=== PATIENT | female | born 1970 | race Caucasian/White ===

== ENCOUNTER → 2016-10-17 | Outpatient (CLI) | payer BC ==
--- NOTE | 2016-10-19 07:40 | MM ---
Reason for exam: screening (asymptomatic). Last mammogram was performed 1 year and 9 months ago. History: Patient has history of other cancer at age 41. Physical Findings: A clinical breast exam by your physician is recommended on an annual basis and results should be correlated with mammographic findings. MG 3D Screening Mammo W/Cad Bilateral CC and MLO view(s) were taken. Prior study comparison: January 22, 2015, bilateral MG screening mammo w CAD. August 14, 2013, [facility] DIGITAL RIGHT MAMMOGRAM w/CAD. The breast tissue is heterogeneously dense. This may lower the sensitivity of mammography. No significant changes when compared with prior studies. ASSESSMENT: Benign, BI-RAD 2 RECOMMENDATION: Routine screening mammogram of both breasts in 1 year.
== END | disposition home or self-care (01) ==
LOC: RADMAMWWP 16:50
PROVIDERS: ATTEND Obstetrics & Gynecology
DX: Z12.31 Encounter for screening mammogram for malignant neoplasm of breast (principal)
CPT/HCPCS: 77063; G0202

== ENCOUNTER 2017-02-26 11:10 | Observation (INO) | payer BC ==
[2017-02-26] MEDS ORDERED: SODIUM CHLORIDE 0.9% 1,000 ML IV STA (12:35)
[2017-02-26] MEDS ORDERED: SODIUM CHLORIDE 0.9% 500 ML IV STA (12:35)
--- NOTE | 2017-02-26 13:06 | XR ---
EXAMINATION TYPE: XR chest 2V DATE OF EXAM: 02/26/2017 COMPARISON: NONE HISTORY: Chest pain with intermittent tachycardia for 2 weeks. TECHNIQUE: Frontal and lateral views of the chest are obtained. FINDINGS: Linear scarring or atelectasis in left lingula is present. Right lung is clear. No large pl eural effusion or pneumothorax is seen bilaterally. The cardiac silhouette size is upper limits of no rmal. The osseous structures are intact. Cholecystectomy clips are noted. IMPRESSION: Lingular linear scarring and/or atelectasis.
--- NOTE | 2017-02-26 13:36 | ED ---
General Adult HPI - General Chief complaint: Arrhythmia/Palpitations Stated complaint: HEART RACING Time Seen by Provider: 02/26/17 12:19 Source: patient, RN notes reviewed, old records reviewed Mode of arrival: ambulatory Limitations: no limitations - History of Present Illness Initial comments: This is a 46-year-old female to the ER for evaluation. Patient presents today for evaluation of arrhythmia palpitations heart beating fast in her chest, occasionally related with shortness of breath. Patient has history of similar symptoms as well as is the worse that has been. No change in medication no fevers, patient denies recent drugs or alcohol. No fevers. Patient does have history of also abdominal surgeries - Related Data Home Medications Medication Instructions Recorded Confirmed Atorvastatin [Lipitor] 20 mg PO HS 02/26/17 02/26/17 Cholecalciferol [Vitamin D3] 2,000 unit PO HS 02/26/17 02/26/17 Cyclobenzaprine [Flexeril] 20 mg PO HS 02/26/17 02/26/17 Metoprolol Succinate (ER) [Toprol 50 mg PO HS 02/26/17 02/26/17 Xl] Rizatriptan Benzoate [Maxalt] 10 mg PO DAILY PRN 02/26/17 02/26/17 Vitamin B Complex 1 cap PO QAM 02/26/17 02/26/17 Allergies Allergy/AdvReac Type Severity Reaction Status Date / Time hydrocodone [From Vicodin] AdvReac Vomiting Verified 02/26/17 13:10 Review of Systems ROS Statement: Those systems with pertinent positive or pertinent negative responses have been documented in the HPI. ROS Other: All systems not noted in ROS Statement are negative. Past Medical History Past Medical History: No Reported History History of Any Multi-Drug Resistant Organisms: None Reported Past Surgical History: Appendectomy, Section, Cholecystectomy, Tonsillectomy, Tubal Ligation Additional Past Surgical History / Comment(s): bowel resection, abrasion surgery , right elbow, right foot, right ovary removed Smoking Status: Never smoker Past Alcohol Use History: None Reported Past Drug Use History: None Reported General Exam Limitations: no limitations General appearance: alert, in no apparent distress, anxious Head exam: Present: atraumatic, normocephalic, normal inspection Eye exam: Present: normal appearance, PERRL, EOMI. Absent: scleral icterus, conjunctival injection, periorbital swelling ENT exam: Present: normal exam, mucous membranes moist Neck exam: Present: normal inspection. Absent: tenderness, meningismus, lymphadenopathy Respiratory exam: Present: normal lung sounds bilaterally. Absent: respiratory distress, wheezes, rales, rhonchi, stridor Cardiovascular Exam: Present: normal rhythm, tachycardia, normal heart sounds. Absent: systolic murmur, diastolic murmur, rubs, gallop, clicks GI/Abdominal exam: Present: soft, normal bowel sounds. Absent: distended, tenderness, guarding, rebound, rigid Extremities exam: Present: normal inspection, full ROM, normal capillary refill. Absent: tenderness, pedal edema, joint swelling, calf tenderness Back exam: Present: normal inspection Neurological exam: Present: alert, oriented X3, CN II-XII intact Psychiatric exam: Present: normal affect, normal mood Skin exam: Present: warm, dry, intact, normal color. 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 ] Respiratory 18 18 18 Rate Blood Pressure 128/76 125/76 120/68 O2 Sat by Pulse 98 98 98 Oximetry - Reevaluation(s) Reevaluation #1: 02/26/17 14:36 Patient's Dar saw remains elevated, 08/14/2003 to 1:15 EKG Findings - EKG Comments: EKG Findings:: EKG shows sinus tachycardia rate 105, VT 140, QRS 86, QTC 470 Medical Decision Making - Medical Decision Making 46-year-old year of palpitations and chest pain, patient will be admitted for cardiac observation, initial EKG and troponin are negative - Lab Data Result diagrams: 02/26/17 12:25 02/26/17 12:25 Lab Results 02/26/17 02/26/17 02/26/17 Range/Units 12:25 12:25 12:25 WBC 10.5 (3.8-10.6) k/uL RBC 4.94 (3.80-5.40) m/uL Hgb 14.1 (11.4-16.0) gm/dL Hct 42.3 (34.0-46.0) % MCV 85.8 (80.0-100.0) fL MCH 28.6 (25.0-35.0) pg MCHC 33.4 (31.0-37.0) g/dL RDW 14.2 (11.5-15.5) % Plt Count 269 (150-450) k/uL Neutrophils % 66 % Lymphocytes % 27 % Monocytes % 4 % Eosinophils % 2 % Basophils % 1 % Neutrophils # 6.9 (1.3-7.7) k/uL Lymphocytes # 2.9 (1.0-4.8) k/uL Monocytes # 0.4 (0-1.0) k/uL Eosinophils # 0.2 (0-0.7) k/uL Basophils # 0.1 (0-0.2) k/uL PT (9.0-12.0) sec INR (<1.2) APTT (22.0-30.0) sec Sodium 144 (137-145) mmol/L Potassium 3.6 (3.5-5.1) mmol/L Chloride 103 (98-107) mmol/L Carbon Dioxide 25 (22-30) mmol/L Anion Gap 16 mmol/L BUN 8 (7-17) mg/dL Creatinine 0.60 (0.52-1.04) mg/dL Est GFR (MDRD) Af Amer >60 (>60 ml/min/1.73 sqM) Est GFR (MDRD) Non-Af >60 (>60 ml/min/1.73 sqM) Glucose 78 (74-99) mg/dL Calcium 9.4 (8.4-10.2) mg/dL Magnesium 1.9 (1.6-2.3) mg/dL Total Bilirubin 0.5 (0.2-1.3) mg/dL AST 24 (14-36) U/L ALT 47 (9-52) U/L Alkaline Phosphatase 77 (38-126) U/L Total Creatine Kinase 56 (30-135) U/L CK-MB (CK-2) 0.4 (0.0-2.4) ng/mL CK-MB (CK-2) Rel Index 0.7 Troponin I <0.012 (0.000-0.034) ng/mL Total Protein 7.2 (6.3-8.2) g/dL Albumin 4.6 (3.5-5.0) g/dL Digoxin <0.4 ng/mL 02/26/17 Range/Units 12:25 WBC (3.8-10.6) k/uL RBC (3.80-5.40) m/uL Hgb (11.4-16.0) gm/dL Hct (34.0-46.0) % MCV (80.0-100.0) fL MCH (25.0-35.0) pg MCHC (31.0-37.0) g/dL RDW (11.5-15.5) % Plt Count (150-450) k/uL Neutrophils % % Lymphocytes % % Monocytes % % Eosinophils % % Basophils % % Neutrophils # (1.3-7.7) k/uL Lymphocytes # (1.0-4.8) k/uL Monocytes # (0-1.0) k/uL Eosinophils # (0-0.7) k/uL Basophils # (0-0.2) k/uL PT 10.1 (9.0-12.0) sec INR 1.0 (<1.2) APTT 24.4 (22.0-30.0) sec Sodium (137-145) mmol/L Potassium (3.5-5.1) mmol/L Chloride (98-107) mmol/L Carbon Dioxide (22-30) mmol/L Anion Gap mmol/L BUN (7-17) mg/dL Creatinine (0.52-1.04) mg/dL Est GFR (MDRD) Af Amer (>60 ml/min/1.73 sqM) Est GFR (MDRD) Non-Af (>60 ml/min/1.73 sqM) Glucose (74-99) mg/dL Calcium (8.4-10.2) mg/dL Magnesium (1.6-2.3) mg/dL Total Bilirubin (0.2-1.3) mg/dL AST (14-36) U/L ALT (9-52) U/L Alkaline Phosphatase (38-126) U/L Total Creatine Kinase (30-135) U/L CK-MB (CK-2) (0.0-2.4) ng/mL CK-MB (CK-2) Rel Index Troponin I (0.000-0.034) ng/mL Total Protein (6.3-8.2) g/dL Albumin (3.5-5.0) g/dL Digoxin ng/mL - Radiology Data Radiology results: report reviewed (Chest x-ray is negative for acute disease), image reviewed Critical Care Time Critical Care Time: Yes Total Critical Care Time: 31 Disposition Clinical Impression: Palpitations, Tachycardia, Chest pain Disposition: ADMITTED IP TO THIS [facility] Condition: Fair
[2017-02-26] MEDS ORDERED: NITROGLYCERIN SL TABS 0.4 MG TAB SUBLINGUAL PRN (14:33)
[2017-02-26] MEDS ORDERED: ASPIRIN 81 MG CHEW PO STA (14:33)
[2017-02-26 14:39] LABS: Basophils # (A) 0.1 k/uL (0-0.2); Basophils % (A) 1 %; Eosinophils # (A) 0.2 k/uL (0-0.7); Eosinophils % (A) 2 %; HCT 42.3 % (34.0-46.0); HDW 2.78; HGB 14.1 gm/dL (11.4-16.0); Luc # (Auto) 0.11; Luc % (Auto) 1; Lymphocytes # (A) 2.9 k/uL (1.0-4.8); Lymphocytes % (A) 27 %; MCH 28.6 pg (25.0-35.0); MCHC 33.4 g/dL (31.0-37.0); MCV 85.8 fL (80.0-100.0); Mean Platelet Volume 8.1; Monocytes # (A) 0.4 k/uL (0-1.0); Monocytes % (A) 4 %; Neutrophils # (A) 6.9 k/uL (1.3-7.7); Neutrophils % (A) 66 %; RBC 4.94 m/uL (3.80-5.40); RDW 14.2 % (11.5-15.5); WBC 10.5 k/uL (3.8-10.6); WBC (Perox) 9.55
[2017-02-26 14:52] LABS: ALT 47 U/L (9-52); AST 24 U/L (14-36); Alkaline Phosphatase 77 U/L (38-126); Anion Gap 16 mmol/L; Blood Urea Nitrogen 8 mg/dL (7-17); Calcium 9.4 mg/dL (8.4-10.2); Carbon Dioxide 25 mmol/L (22-30); Chloride 103 mmol/L (98-107); Digoxin <0.4 ng/mL; Glucose 78 mg/dL (74-99); Magnesium 1.9 mg/dL (1.6-2.3); Non-African American GFR(MDRD) >60 (>60 ml/min/1.73 sqM); Potassium 3.6 mmol/L (3.5-5.1); Sodium 144 mmol/L (137-145); Total Bilirubin 0.5 mg/dL (0.2-1.3); Total Protein 7.2 g/dL (6.3-8.2)
[2017-02-26 14:54] LABS: Partial Thromboplastin Time 24.4 sec (22.0-30.0); Prothrombin Time 10.1 sec (9.0-12.0)
[2017-02-26 15:00] LABS: Creatine Kinase 56 U/L (30-135)
[2017-02-26 15:13] LABS: Creatine Kinase MB 0.4 ng/mL (0.0-2.4); Troponin I <0.012 ng/mL (0.000-0.034)
[2017-02-26] MEDS: SODIUM CHLORIDE 0.9% 1,000 ML IV SCH (16:37)
[2017-02-26 16:49] VITALS: BMI 42.5
[2017-02-26 18:57] LABS: Creatine Kinase 45 U/L (30-135)
[2017-02-26 19:10] LABS: Creatine Kinase MB 0.3 ng/mL (0.0-2.4); Troponin I <0.012 ng/mL (0.000-0.034)
[2017-02-26] MEDS ORDERED: SUMAtriptan SUCCINATE 50 MG TAB PO PRN (22:23)
[2017-02-26] MEDS ORDERED: CYCLOBENZAPRINE 10 MG TAB PO SCH (22:30)
[2017-02-26] MEDS ORDERED: ATORVASTATIN 20 MG TAB PO SCH (22:30)
[2017-02-26] MEDS ORDERED: CHOLECALCIFEROL 1,000 UNIT TAB PO SCH (22:30)
[2017-02-26] MEDS: METOPROLOL TARTRATE 50 MG TAB PO SCH (22:55)
[2017-02-27 00:08] LABS: Creatine Kinase 42 U/L (30-135)
[2017-02-27 00:20] LABS: Creatine Kinase MB 0.3 ng/mL (0.0-2.4); Troponin I <0.012 ng/mL (0.000-0.034)
[2017-02-27] MEDS: SODIUM CHLORIDE 0.9% 1,000 ML IV SCH (00:33)
[2017-02-27 04:31] VITALS: RESP 18
[2017-02-27 06:46] LABS: Basophils % (A) 0 %; CH 28.8; CHCM 33.9; Eosinophils # (A) 0.2 k/uL (0-0.7); Eosinophils % (A) 3 %; HCT 37.8 % (34.0-46.0); HDW 2.84; HGB 12.5 gm/dL (11.4-16.0); Luc # (Auto) 0.15; Luc % (Auto) 2; Lymphocytes # (A) 1.9 k/uL (1.0-4.8); Lymphocytes % (A) 27 %; MCH 28.2 pg (25.0-35.0); MCV 85.2 fL (80.0-100.0); Mean Platelet Volume 7.5; Monocytes # (A) 0.3 k/uL (0-1.0); Monocytes % (A) 5 %; Neutrophils # (A) 4.4 k/uL (1.3-7.7); Neutrophils % (A) 63 %; RBC 4.43 m/uL (3.80-5.40); RDW 14.3 % (11.5-15.5); WBC (Perox) 7.19
[2017-02-27 06:59] LABS: Anion Gap 9 mmol/L; Blood Urea Nitrogen 8 mg/dL (7-17); Calcium 8.9 mg/dL (8.4-10.2); Carbon Dioxide 25 mmol/L (22-30); Chloride 108 mmol/L (98-107); Cholesterol 114 mg/dL (<200); Glucose 108 mg/dL (74-99); HDL Cholesterol 31 mg/dL (40-60); Magnesium 1.9 mg/dL (1.6-2.3); Non-African American GFR(MDRD) >60 (>60 ml/min/1.73 sqM); Potassium 4.3 mmol/L (3.5-5.1); Sodium 142 mmol/L (137-145)
[2017-02-27] MEDS ORDERED: ASPIRIN 325 MG TAB PO SCH (09:00)
[2017-02-27] MEDS ORDERED: B COMPLEX-VIT C-VIT E-ZINC 1 EACH TAB PO SCH (09:00)
[2017-02-27] MEDS: METOPROLOL TARTRATE 50 MG TAB PO SCH (10:50)
[2017-02-27 11:14] VITALS: BP 124/79; PULSE 100; TEMP 97.5
--- NOTE | 2017-02-27 16:33 | CONS ---
Caren Remy is a ( )-year-old lady with a history of palpitations and probably inappropriate sinus tachycardia. She came into the hospital complaining of a fluttering feeling in the chest and was found to be in sinus tachycardia. She usually takes Toprol XL 50 mg daily. That was switched to Lopressor 50 mg b.i.d. She is resting comfortably without symptoms. She sees Dr. Freda Kim in the outpatient setting, and I will be seeing her in the office in followup. She is doing well at the time of my evaluation; her palpations are better. EKG reveals sinus tachycardia which seems to be improving. She has no chest discomfort or any dizziness or lightheadedness. She has hyperlipidemia and probably inappropriate sinus tachycardia and history of some back pain of unclear etiology. PAST MEDICAL HISTORY: Unremarkable for hypertension, diabetes, myocardial infarction of CVA. Patient has history of inappropriate sinus tachycardia. She is status post cholecystectomy, tubal ligation. SOCIAL HISTORY: Patient is not a smoker. She does use caffeine and drinks Crystal Light, which I have asked her to stop. Medications at home include: 1. Lipitor 20 mg daily. 2. Metoprolol succinate 50 mg daily. 3. Maxalt for migraine headaches. 4. Vitamin supplements. On examination, her blood pressure is 124/70, pulse rate 80 per minute, regular. HEENT: Unremarkable. Fundus was not examined by me. Neck is supple. No JVD. I do not hear a carotid bruit. There is no thyromegaly. Heart exam reveals S1, S2 heard normally in all areas without a rub, murmur or gallop. Lungs are clear. Abdomen is soft, non-tender. Lower extremities reveal normal pulses. No edema. Central nervous system in normal. Laboratory data reveal her TSH is normal. No other significant abnormalities are detected. D-dimer is within normal limits. EKG revealed a sinus rhythm and heart rate of about 105 beats per minute; no acute changes. IMPRESSION: 1. Sinus tachycardia in a patient with a known inappropriate sinus tachycardia. 2. History of hyperlipidemia. RECOMMENDATIONS: I am recommending that we put her on a Hep-Lock, increase her activity, switch her from metoprolol succinate 50 mg daily to metoprolol tartrate 50 mg b.i.d. She can be discharged. I will see her in the office in 2 weeks or so. Advised regarding weight reduction, dietary ( ) and exercise. Thank you very much for the consult. ROSIBEL
--- NOTE | 2017-02-27 17:16 | P.HPIM ---
History of Present Illness 46-year-old female came in with complains of palpitations, found to have sinus tachycardia. Patient was also of mild chest pressure like sensation which resolved in a few minutes without any diaphoresis, nausea, lightheadedness. Patient was evaluated by cardiology. Patient had a recent echocardiogram and cardiology outpatient clinic which was essentially within normal limits. Patient has normal d-dimer, she does not have any symptoms of sepsis. Patient denied any fever chills, nausea vomiting urease essentially within normal limits chest x-ray did not show any significant abnormalities. She was evaluated cardiology and recommending Lopressor 50 twice a day patient is an 50 once a day long-acting metoprolol at home. Review of Systems REVIEW OF SYSTEMS: CONSTITUTIONAL: No fever, no malaise, no fatigue. HEENT: No recent visual problems or hearing problems. Denied any sore throat. CARDIOVASCULAR: Noorthopnea, PND, no syncope. PULMONARY: No shortness of breath, no cough, no hemoptysis. GASTROINTESTINAL: No diarrhea, no nausea, no vomiting, no abdominal pain. Normoactive bowel sounds. NEUROLOGICAL: No headaches, no weakness, no numbness. HEMATOLOGICAL: Denies any bleeding or petechiae. GENITOURINARY: Denies any burning micturition, frequency, or urgency. MUSCULOSKELETAL/RHEUMATOLOGICAL: Denies any joint pain, swelling, or any muscle pain. ENDOCRINE: Denies any polyuria or polydipsia. The rest of the 14-point review of systems is negative. Past Medical History Past Medical History: Hyperlipidemia Additional Past Medical History / Comment(s): Plapitations History of Any Multi-Drug Resistant Organisms: None Reported Past Surgical History: Appendectomy, Section, Cholecystectomy, Tonsillectomy, Tubal Ligation Additional Past Surgical History / Comment(s): bowel resection, abrasion surgery , right elbow, right foot, right ovary removed Smoking Status: Never smoker - Past Family History Mother Family Medical History: CVA/TIA Father Family Medical History: Hypertension Medications and Allergies Home Medications Medication Instructions Recorded Confirmed Type Atorvastatin [Lipitor] 20 mg PO HS 02/26/17 02/26/17 History Cholecalciferol [Vitamin D3] 2,000 unit PO HS 02/26/17 02/26/17 History Cyclobenzaprine [Flexeril] 20 mg PO HS 02/26/17 02/26/17 History Rizatriptan Benzoate [Maxalt] 10 mg PO DAILY PRN 02/26/17 02/26/17 History Vitamin B Complex 1 cap PO QAM 02/26/17 02/26/17 History Allergies Allergy/AdvReac Type Severity Reaction Status Date / Time hydrocodone [From Vicodin] AdvReac Vomiting Verified 02/26/17 13:10 Physical Exam Vitals: Vital Signs Temp Pulse Resp BP Pulse Ox 02/27/17 11:13 97.5 F L 100 18 124/79 93 L 02/27/17 08:57 97.4 F L 95 18 118/57 95 02/27/17 08:47 94 L 02/27/17 04:00 97.8 F 88 18 108/73 94 L 02/27/17 00:00 98.2 F 93 18 107/72 95 02/26/17 20:00 97.8 F 104 H 18 124/70 94 L Intake and Output 02/27/17 02/27/17 02/27/17 06:59 14:59 22:59 Intake Total 1200 600 Balance 1200 600 Intake: IV 1200 300 Sodium Chloride 0.9% 1, 1200 300 000 ml @ 100 mls/hr IV . Q10H IVETTE Rx#:[id number] Oral 300 Other: Voiding Method Toilet Toilet # Voids 2 Weight 89.9 kg PHYSICAL EXAMINATION: GENERAL: The patient is alert and oriented x3, not in any acute distress. Well developed, well nourished. HEENT: Pupils are round and equally reacting to light. EOMI. No scleral icterus. No conjunctival pallor. Normocephalic, atraumatic. No pharyngeal erythema. No thyromegaly. CARDIOVASCULAR: S1 and S2 present. No murmurs, rubs, or gallops. PULMONARY: Chest is clear to auscultation, no wheezing or crackles. ABDOMEN: Soft, nontender, nondistended, normoactive bowel sounds. No palpable organomegaly. MUSCULOSKELETAL: No joint swelling or deformity. EXTREMITIES: No cyanosis, clubbing, or pedal edema. NEUROLOGICAL: Gross neurological examination did not reveal any focal deficits. SKIN: No rashes. Results CBC & Chem 7: 02/27/17 06:18 02/27/17 06:18 Labs: Abnormal Lab Results - Last 24 Hours (Table) 02/27/17 Range/Units 06:18 Chloride 108 H (98-107) mmol/L Glucose 108 H (74-99) mg/dL Triglycerides 166 H (<150) mg/dL HDL Cholesterol 31 L (40-60) mg/dL Thrombosis Risk Factor Assmnt - Choose All That Apply Each Factor Represents 1 point: Age 41-60 years, Obesity (BMI >25) Thrombosis Risk Factor Assessment Total Risk Factor Score: 2 Thrombosis Risk Factor Assessment Level: Low Risk Assessment and Plan Plan: #1 sinus tachycardia: Work up negative, TSH of the essentially within normal limits. Patient is being discharged on metoprolol as mentioned above. Patient was referred to cardiology. 2 chest pressure: Secondary to tachycardia. 3 hyperlipidemia
--- NOTE | 2017-02-27 17:17 | P.DS ---
Providers Date of admission: 02/26/17 14:33 Attending physician: Berenice Queen Consults: 02/26/17 14:33 Consult Physician Urgent Consulting Provider: La Kim Consult Reason/Comments: cp Do you want consulting provider notified?: Yes Primary care physician: Stated None Hospital Course: Please refer to HPI Patient Condition at Discharge: Fair Plan - Discharge Summary New Discharge Prescriptions: New Metoprolol Tartrate [Lopressor] 50 mg PO BID #60 tab Discontinued Metoprolol Succinate (ER) [Toprol Xl] 50 mg PO HS No Action Vitamin B Complex 1 cap PO QAM Rizatriptan Benzoate [Maxalt] 10 mg PO DAILY PRN PRN Reason: Migraine Headache Cholecalciferol [Vitamin D3] 2,000 unit PO HS Atorvastatin [Lipitor] 20 mg PO HS Cyclobenzaprine [Flexeril] 20 mg PO HS Discharge Medication List Atorvastatin [Lipitor] 20 mg PO HS 02/26/17 [History] Cholecalciferol [Vitamin D3] 2,000 unit PO HS 02/26/17 [History] Cyclobenzaprine [Flexeril] 20 mg PO HS 02/26/17 [History] Rizatriptan Benzoate [Maxalt] 10 mg PO DAILY PRN 02/26/17 [History] Vitamin B Complex 1 cap PO QAM 02/26/17 [History] Metoprolol Tartrate [Lopressor] 50 mg PO BID #60 tab 02/27/17 [Rx] Follow up Appointment(s)/Referral(s): La Kim MD [STAFF PHYSICIAN] - 03/15/17 10:30 am None,Stated [Primary Care Provider] - 3 Days () Patient Instructions/Handouts: Chest Pain (DC) Discharge Disposition: HOME SELF-CARE
[2017-02-28] MEDS ORDERED: ASPIRIN 81 MG CHEW PO SCH (09:00)
== END 2017-02-27 15:25 | disposition home or self-care (01) ==
LOC: EC 11:10 → 6SEL 14:33
PROVIDERS: ADMIT Hospitalist; ATTEND Hospitalist
DX: R00.0 Tachycardia, unspecified (principal); E66.9 Obesity, unspecified; E78.5 Hyperlipidemia, unspecified; G43.909 Migraine, unspecified, not intractable, without status migrainosus; M54.9 Dorsalgia, unspecified; Z82.49 Family history of ischemic heart disease and other diseases of the circulatory system; Z88.5 Allergy status to narcotic agent; Z79.899 Other long term (current) drug therapy; Z68.41 Body mass index [BMI] 40.0-44.9, adult
CPT/HCPCS: 96360 ×2; 99291 ×2; 93005 ×2; 36415; 94760; 85379; 80061; 80053; 80048; 84443; 82550; 82553; 80162; 83735 ×2; 84484; 85025 ×2; 85610; 85730; 71020; G0378 ×2

== ENCOUNTER → 2017-04-02 | Outpatient (CLI) | payer BC ==
[2017-04-02 16:26] LABS: Digoxin 0.5 ng/mL
== END | disposition home or self-care (01) ==
LOC: LABWHC1 15:50
PROVIDERS: ATTEND Internal Medicine Interventional Cardiology
DX: I49.9 Cardiac arrhythmia, unspecified (principal)
CPT/HCPCS: 36415; 80162; 84439; 84443

== ENCOUNTER → 2020-09-28 | Outpatient (CLI) | payer BC ==
--- NOTE | 2020-09-29 13:36 | MM ---
Reason for exam: screening (asymptomatic). Last mammogram was performed 3 years and 11 months ago. History: Patient is postmenopausal and has history of other cancer at age 41. Physical Findings: A clinical breast exam by your physician is recommended on an annual basis and results should be correlated with mammographic findings. MG 3D Screening Mammo W/Cad Bilateral CC and MLO view(s) were taken. Prior study comparison: October 17, 2016, bilateral MG 3d screening mammo w/cad. January 22, 2015, bilateral MG screening mammo w CAD. The breast tissue is heterogeneously dense. This may lower the sensitivity of mammography. No significant changes when compared with prior studies. ASSESSMENT: Benign, BI-RAD 2 RECOMMENDATION: Routine screening mammogram of both breasts in 1 year.
== END | disposition home or self-care (01) ==
LOC: RADMAMWWP 09:42
PROVIDERS: ATTEND Obstetrics & Gynecology
DX: Z12.31 Encounter for screening mammogram for malignant neoplasm of breast (principal)
CPT/HCPCS: 77063; 77067

== ENCOUNTER 2020-11-25 15:02 | Emergency (ER) | payer BC, OTHER ==
[2020-11-25 15:10] VITALS: BP 117/61; PULSE 97; RESP 18; TEMP 97.5
--- NOTE | 2020-11-25 15:50 | XR ---
EXAMINATION TYPE: XR wrist complete LT, XR hand complete LT DATE OF EXAM: 11/25/2020 CLINICAL HISTORY: Pain after injury TECHNIQUE: Frontal, lateral and oblique images of the left wrist and hand are obtained. 4 view scap hoid view is performed. COMPARISON: None FINDINGS: There is no acute fracture/dislocation evident in the left wrist. The joint spaces in the left wrist appear within normal limits. The overlying soft tissue appears unremarkable. Incomplete extension of the phalanges. No acute fracture or dislocation is seen. Mild narrowing throu ghout the PIP and DIP joints. Overlying soft tissue is unremarkable. IMPRESSION: As above.
--- NOTE | 2020-11-25 16:07 | ED ---
Upper Extremity HPI - General Chief Complaint: Extremity Injury, Upper Stated Complaint: [facility] L hand & wrist injury Time Seen by Provider: 11/25/20 15:26 Source: patient Mode of arrival: ambulatory Limitations: no limitations - History of Present Illness Initial Comments: 49-year-old female patient presents to the emergency department today for evaluation of left hand pain. Patient states early around 11:45 AM she closed her hand in the freezer at work. States the hand has become swollen and painful. Pain is radiating into the wrist. She denies any other injuries or concerns. Does report some tingling to the fingers. Denies difficulty with range of motion, but does report increased pain with movement. Denies previous injury to this hand. - Related Data Home Medications Medication Instructions Recorded Confirmed Atorvastatin [Lipitor] 20 mg PO HS 02/26/17 02/26/17 Cholecalciferol [Vitamin D3] 2,000 unit PO HS 02/26/17 02/26/17 Cyclobenzaprine [Flexeril] 20 mg PO HS 02/26/17 02/26/17 Rizatriptan Benzoate [Maxalt] 10 mg PO DAILY PRN 02/26/17 02/26/17 Vitamin B Complex 1 cap PO QAM 02/26/17 02/26/17 Previous Rx's Medication Instructions Recorded Metoprolol Tartrate [Lopressor] 50 mg PO BID #60 tab 02/27/17 Allergies Allergy/AdvReac Type Severity Reaction Status Date / Time hydrocodone [From Vicodin] AdvReac Vomiting Verified 11/25/20 15:10 Review of Systems ROS Statement: Those systems with pertinent positive or pertinent negative responses have been documented in the HPI. ROS Other: All systems not noted in ROS Statement are negative. Past Medical History Past Medical History: Hyperlipidemia Additional Past Medical History / Comment(s): Plapitations History of Any Multi-Drug Resistant Organisms: None Reported Past Surgical History: Appendectomy, Section, Cholecystectomy, Tonsillectomy, Tubal Ligation Additional Past Surgical History / Comment(s): bowel resection, abrasion surgery, right elbow, right foot, right ovary removed Past Psychological History: No Psychological Hx Reported Smoking Status: Never smoker Past Alcohol Use History: None Reported Past Drug Use History: None Reported - Past Family History Mother Family Medical History: CVA/TIA Father Family Medical History: Hypertension General Exam Limitations: no limitations General appearance: alert, in no apparent distress, other (This is a well developed, well nourished adult female patient in no acute distress. Vital signs upon presentation are temperature 97.5F, pulse 97, respirations 18, blood pressure 117/61, pulse ox 97% on room air.) Eye exam: Present: normal appearance ENT exam: Present: normal exam, normal oropharynx, mucous membranes moist Respiratory exam: Present: normal lung sounds bilaterally. Absent: respiratory distress, wheezes, rales, rhonchi, stridor Cardiovascular Exam: Present: regular rate, normal rhythm, normal heart sounds. Absent: systolic murmur, diastolic murmur, rubs, gallop, clicks GI/Abdominal exam: Present: soft, normal bowel sounds. Absent: distended, tenderness, guarding, rebound, rigid Extremities exam: Present: full ROM, normal capillary refill, other (Is ecchymosis noted over the dorsal aspect of the left hand, soft tissue swelling. Skin is otherwise pink, warm, dry. Cap refill less than 3 seconds. Radial pulses 2+. There is no anatomical snuffbox tenderness.). Absent: normal inspection, tenderness, pedal edema, joint swelling, calf tenderness Neurological exam: Present: alert, oriented X3, CN II-XII intact Psychiatric exam: Present: normal affect, normal mood Skin exam: Present: warm, dry, intact, normal color. Absent: rash Course Vital Signs 11/25/20 15:07 Temperature 97.5 F L Pulse Rate 97 Respiratory 18 Rate Blood Pressure 117/61 O2 Sat by Pulse 97 Oximetry Medical Decision Making - Medical Decision Making 49-year-old female patient presented to the emergency department today for evaluation of left hand pain after closing in a door at work. Physical examination did reveal soft tissue swelling and ecchymosis. Neurovascular status is intact. X-ray shows no evidence for fracture. She'll be placed in an Humberto wrap and instructed to alternate Tylenol and Motrin as well as apply ice. She is instructed have repeat x-rays performed in 7-10 days if pain symptoms persist for possibility of occult fracture. She is given orthopedic follow-up if necessary. Return parameters were discussed in detail. She verbalizes understanding and agrees this plan. My attending is Dr. Smart. Disposition Clinical Impression: Contusion of left hand Disposition: HOME SELF-CARE Condition: Good Instructions (If sedation given, give patient instructions): Contusion in Adults (ED) Additional Instructions: Rest, ice, elevate the hand. Use humberto wrap for comfort and support. Take, or Motrin for pain control. Follow-up with the primary care physician for recheck in 1-2 days. Follow up with vocational placement specialist for further evaluation as needed. Return to the unit emergency department for any new, worsening, or concerning symptoms Is patient prescribed a controlled substance at d/c from ED?: No Referrals: Vicente Tellez Jr, DO [Primary Care Provider] - 1-2 days Catherine Alonso DO [Doctor of Osteopathic Medicine] - 1-2 days Time of Disposition: 16:07
== END 2020-11-25 16:45 | disposition home or self-care (01) ==
LOC: EC 15:02
DX: S60.222A Contusion of left hand, initial encounter (principal); E78.5 Hyperlipidemia, unspecified; W22.8XXA Striking against or struck by other objects, initial encounter
CPT/HCPCS: 99283; 99284

== ENCOUNTER → 2021-12-19 | Outpatient (CLI) | payer BC ==
--- NOTE | 2021-12-21 12:55 | MM ---
Reason for exam: screening (asymptomatic). Last mammogram was performed 1 year and 3 months ago. History: Patient is postmenopausal and has history of other cancer at age 41. Physical Findings: A clinical breast exam by your physician is recommended on an annual basis and results should be correlated with mammographic findings. MG 3D Screening Mammo W/Cad Bilateral CC and MLO view(s) were taken. Prior study comparison: September 28, 2020, bilateral MG 3d screening mammo w/cad. October 17, 2016, bilateral MG 3d screening mammo w/cad. There are scattered fibroglandular densities. No significant changes when compared with prior studies. ASSESSMENT: Negative, BI-RAD 1 RECOMMENDATION: Routine screening mammogram of both breasts in 1 year.
== END | disposition home or self-care (01) ==
LOC: RADMAMWWP 16:06
PROVIDERS: ATTEND Obstetrics & Gynecology
DX: Z12.31 Encounter for screening mammogram for malignant neoplasm of breast (principal)
CPT/HCPCS: 77063; 77067

== ENCOUNTER → 2023-07-06 | Outpatient (CLI) | payer BC ==
--- NOTE | 2023-07-09 08:36 | MM ---
Reason for Exam: Screening (asymptomatic). Last mammogram was performed 1 year(s) and 6 month(s) ago. Patient History: Menarche at age 14. First Full-Term at age 22. Right ovary removed at age 12. Postmenopausal. Other cancer, age 41. Risk Values: Rachel 5 year model risk: 0.9%. NCI Lifetime model risk: 7.1%. Prior Study Comparison: 10/17/2016 Bilateral Screening Mammogram, [facility]. 09/28/2020 Bilateral Screening Mammogram, [facility]. 12/19/2021 Bilateral Screening Mammogram, [facility]. Tissue Density: There are scattered fibroglandular densities. Findings: Analyzed By CAD. There is no suspicious group of microcalcifications or new suspicious mass. Overall Assessment: Negative, BI-RAD 1 Management: Screening Mammogram of both breasts in [address] [facility] will attempt to contact patient to return for supplemental views and ultrasound if indicated. Patient should continue monthly self-breast exams. A clinical breast exam by your physician is recommended on an annual basis. This exam should not preclude additional follow-up of suspicious palpable abnormalities. Note on Rachel scores and lifetime risk: 1. A Rachel score greater than 3% is considered moderate risk. If this is the case, consider specialist referral to assess eligibility for a risk reducing agent. 2. If overall lifetime risk for the development of breast cancer is 20% or higher, the patient may qualify for future screening with alternating mammogram and breast MRI. Electronically signed and approved by: Oscar Solano DO
== END | disposition home or self-care (01) ==
LOC: RADMAMWWP 15:39
PROVIDERS: ATTEND Obstetrics & Gynecology
DX: Z12.31 Encounter for screening mammogram for malignant neoplasm of breast (principal); Z78.0 Asymptomatic menopausal state
CPT/HCPCS: 77063; 77067

== ENCOUNTER → 2023-09-12 | Outpatient (CLI) | payer BC | END | disposition home or self-care (01) | LOC: LABWHC1 16:19 | PROVIDERS: ATTEND Internal Medicine Interventional Cardiology | DX: I10 Essential (primary) hypertension (principal); R00.2 Palpitations | CPT/HCPCS: 36415; 80162 ==

== ENCOUNTER 2023-11-22 19:22 | Emergency (ER) | payer BC ==
--- NOTE | 2023-11-22 19:39 | ED ---
Abdominal Pain HPI - General Source: patient, RN notes reviewed Mode of arrival: ambulatory Limitations: no limitations <Olivia Noble - Last Filed: 11/22/23 19:38> - General Source: patient, RN notes reviewed, old records reviewed <Martin Subramanian - Last Filed: 11/22/23 23:20> - General Chief Complaint: Abdominal Pain Stated Complaint: R back/side pain Time Seen by Provider: 11/22/23 19:38 - History of Present Illness Initial Comments: Quick note: 52-year-old female presenting to the ER with a chief complaint of right side/flank pain. She states has been going on for a month. It waxes and wanes. Known history of kidney stones. (Olivia Noble) Is a 52-year-old female presents emergency department complaining of right flank/rib pain. Somewhat chronic. Waxes and wanes. Worse over the last few weeks. Friend made her come in for evaluation. Has a known history of kidney stones but this is different. Pain radiates from her spine around the inferior ribs. No obvious traumatic injury. Presents for further evaluation. Denies fevers, chills, cough. (Martin Subramanian) - Related Data Home Medications Medication Instructions Recorded Confirmed Atorvastatin [Lipitor] 20 mg PO HS 02/26/17 02/26/17 Cholecalciferol [Vitamin D3] 2,000 unit PO HS 02/26/17 02/26/17 Cyclobenzaprine [Flexeril] 20 mg PO HS 02/26/17 02/26/17 Rizatriptan Benzoate [Maxalt] 10 mg PO DAILY PRN 02/26/17 02/26/17 Vitamin B Complex 1 cap PO QAM 02/26/17 02/26/17 Previous Rx's Medication Instructions Recorded Metoprolol Tartrate [Lopressor] 50 mg PO BID #60 tab 02/27/17 Allergies Allergy/AdvReac Type Severity Reaction Status Date / Time hydrocodone [From Vicodin] AdvReac Vomiting Verified 11/22/23 19:29 Review of Systems ROS Other: All systems not noted in ROS Statement are negative. <Olivia Noble - Last Filed: 11/22/23 19:38> ROS Other: All systems not noted in ROS Statement are negative. <Martin Subramanian - Last Filed: 11/22/23 23:20> ROS Statement: Those systems with pertinent positive or pertinent negative responses have been documented in the HPI. Review of Systems: CONST: Denies fever EYES: Denies blurry vision ENT: Denies nasal congestion C/V: Denies Chest pain RESP: Denies shortness of breath GI: Denies abdominal pain : Denies dysuria SKIN: Denies rash. MSK: Endorses rib pain NEURO: Denies headache (Martin Subramanian) Past Medical History Past Medical History: Hyperlipidemia Additional Past Medical History / Comment(s): Plapitations History of Any Multi-Drug Resistant Organisms: None Reported Past Surgical History: Appendectomy, Section, Cholecystectomy, Tonsillectomy, Tubal Ligation Additional Past Surgical History / Comment(s): bowel resection, abrasion guzman malka, right elbow, right foot, right ovary removed Past Psychological History: No Psychological Hx Reported Smoking Status: Never smoker Past Alcohol Use History: None Reported Past Drug Use History: None Reported - Past Family History Mother Family Medical History: CVA/TIA Father Family Medical History: Hypertension <Olivia Noble - Last Filed: 11/22/23 19:38> General Exam Limitations: no limitations <Olivia Noble - Last Filed: 11/22/23 19:38> <Martin Subramanian - Last Filed: 11/22/23 23:20> - General Exam Comments Initial Comments: Visual Physical Exam Vital signs reviewed General: Well-appearing, nontoxic, no acute distress. Head: Normocephalic, atraumatic Eyes: PERRLA, EOMI ENT: Airway patent Chest: Nonlabored breathing Skin: No visual rash, normal skin tone Neuro: Alert and oriented 3 Musculoskeletal: No gross abnormalities (Olivia Noble) General: Appears in no acute distress. HEAD: Normal with no signs of head trauma. EYES: PERRLA, EOMI, conjunctiva normal, no discharge. ENT: Hearing grossly intact, normal oropharynx. RESPIRATORY: Clear breath sounds bilaterally. No wheezes, rales, or rhonchi. C/V: Regular rate and rhythm. S1 and S2 auscultated, no edema, peripheral pulses 2+ and intact throughout ABD: Abd is soft, nontender, nondistended EXT: Normal range of motion, no obvious deformity. Patient has no obvious step- offs or deformities of the thoracic spine but does have some midline point tenderness as well as radiation of tenderness around the mid to inferior rib spaces. No obvious skin changes. No obvious step-offs or deformities of the ribs or spine. SKIN: No rashes or lesions observed on exposed skin. NEURO: Alert and oriented x 4. No focal deficits. (Martin Subramanian) Course Vital Signs 11/22/23 11/22/23 11/22/23 19:28 21:19 22:45 Temperature 97.9 F Pulse Rate 76 65 79 Respiratory 18 18 18 Rate Blood Pressure 110/65 118/69 102/53 O2 Sat by Pulse 97 96 94 L Oximetry Medical Decision Making <Olivia Noble - Last Filed: 11/22/23 19:38> - Lab Data Result diagrams: 11/22/23 21:10 11/22/23 21:10 - EKG Data -: EKG Interpreted by Me <Martin Subramanian - Last Filed: 11/22/23 23:20> - Medical Decision Making I performed the quick note portion of this chart. Electronically signed by Olivia Noble PA-C (Olivia Noble) Was pt. sent in by a medical professional or institution ([facility]les, STRIP MILL OPERATOR, urgent care, hospital, or senior care...) When possible be specific @ -No Did you speak to anyone other than the patient for history (EMS, parent, family, police, friend...)? What history was obtained from this source @ -No Did you review nursing and triage notes (agree or disagree)? Why? @ -I reviewed and agree with nursing and triage notes Were old charts reviewed (outside hosp., previous admission, EMS record, old EKG, old radiological studies, urgent care reports/EKG's, senior care records)? Report findings @ -Old charts reviewed Differential Diagnosis (chest pain, altered mental status, abdominal pain women, abdominal pain men, vaginal bleeding, weakness, fever, dyspnea, syncope, headache, dizziness, GI bleed, back pain, seizure, CVA, palpatations, mental health, musculoskeletal)? @ -Chest wall pain, rib pain, kidney stone, nerve impingement. This list is not all inclusive. EKG interpreted by me (3pts min.). @ -As above X-rays interpreted by me (1pt min.). @ -Thoracic spine x-ray and right-sided rib and chest x-ray negative for any obvious acute process. CT interpreted by me (1pt min.). @ -None done U/S interpreted by me (1pt. min.). @ -None done What testing was considered but not performed or refused? (CT, X-rays, U/S, labs)? Why? @ -None What meds were considered but not given or refused? Why? @ -I offered analgesia medications which were declined. Did you discuss the management of the patient with other professionals (professionals i.e. , PA, STRIP MILL OPERATOR, lab, RT, psych nurse, socially responsible investment adviser, shook machine operator, teacher, youth probation officer, family service caseworker)? Give summary @ -No Was smoking cessation discussed for >3mins.? @ -No Was critical care preformed (if so, how long)? @ -No Were there social determinants of health that impacted care today? How? (Homelessness, low income, unemployed, alcoholism, drug addiction, transportation, low edu. Level, literacy, decrease access to med. care, long-term, rehab)? @ -No Was there de-escalation of care discussed even if they declined (Discuss DNR or withdrawal of care, Hospice)? DNR status @ -No What co-morbidities impacted this encounter? (DM, HTN, Smoking, COPD, CAD, Cancer, CVA, ARF, Chemo, Hep., AIDS, mental health diagnosis, sleep apnea, morbid obesity)? @ -None Was patient admitted / discharged? Hospital course, mention meds given and route, prescriptions, significant lab abnormalities, going to OR and other pertinent info. @ -Patient presents primarily with chest wall pain. Seems to be likely spine or nerve impingement pain as it is worse with palpation and with movements. Radiates along the rib spaces. Discussed with the patient we will obtain screening EKG as well as x-rays. Patient does have a history of a kidney stone, states this is not her typical pain. I did offer screening with blood work as well as urine. She was in agreement this plan. I did offer analgesia medications which were declined at this time other than ice. Vital signs within acceptable limits. Imaging unremarkable. Labs unremarkable. No evidence of hematuria or renal dysfunction. I discussed the results with the patient. She expressed understanding. She will be given incentive spirometer and diagnosis of chest wall pain with likely muscle strain of impingement. Patient was in agreement this plan. I instructed the patient to follow up with their PCP in the next 1-3 days. I explained that the patient should return to the emergency department if they experience any worsening symptoms. Strict return precautions were discussed with the patient. The patient expressed understanding of these instructions. I answered all questions that the patient had. The patient was discharged home in good condition with their prescriptions and follow up information. Undiagnosed new problem with uncertain prognosis? @ -No Drug Therapy requiring intensive monitoring for toxicity (Heparin, Nitro, Insulin, Cardizem)? @ -No Were any procedures done? @ -No Diagnosis/symptom? @ -Chest wall pain, rib pain on right side. Acute, or Chronic, or Acute on Chronic? @ -Acute Uncomplicated (without systemic symptoms) or Complicated (systemic symptoms)? @ -Uncomplicated Side effects of treatment? @ -No Exacerbation, Progression, or Severe Exacerbation? @ -No Poses a threat to life or bodily function? How? (Chest pain, [place], [place], pneumonia, PE, COPD, DKA, ARF, appy, cholecystitis, CVA, Diverticulitis, Homicidal, Suicidal, threat to staff... and all critical care pts) @ -No (Martin Subramanian) - Lab Data Lab Results 11/22/23 11/22/23 11/22/23 Range/Units 21:10 21:10 21:10 WBC 8.9 (3.8-10.6) k/uL RBC 4.50 (3.80-5.40) m/uL Hgb 13.4 (11.4-16.0) gm/dL Hct 39.8 (34.0-46.0) % MCV 88.3 (80.0-100.0) fL MCH 29.7 (25.0-35.0) pg MCHC 33.6 (31.0-37.0) g/dL RDW 13.4 (11.5-15.5) % Plt Count 236 (150-450) k/uL MPV 8.5 Neutrophils % 61 % Lymphocytes % 31 % Monocytes % 4 % Eosinophils % 3 % Basophils % 0 % Neutrophils # 5.4 (1.3-7.7) k/uL Lymphocytes # 2.8 (1.0-4.8) k/uL Monocytes # 0.4 (0-1.0) k/uL Eosinophils # 0.2 (0-0.7) k/uL Basophils # 0.0 (0-0.2) k/uL Sodium 139 (137-145) mmol/L Potassium 4.0 (3.5-5.1) mmol/L Chloride 104 (98-107) mmol/L Carbon Dioxide 29 (22-30) mmol/L Anion Gap 6 mmol/L BUN 16 (7-17) mg/dL Creatinine 0.63 (0.52-1.04) mg/dL Est GFR (CKD-EPI)AfAm >90 (>60 ml/min/1.73 sqM) Est GFR (CKD-EPI)NonAf >90 (>60 ml/min/1.73 sqM) Glucose 118 H (74-99) mg/dL Calcium 9.3 (8.4-10.2) mg/dL Total Bilirubin 0.4 (0.2-1.3) mg/dL AST 21 (14-36) U/L ALT 23 (4-34) U/L Alkaline Phosphatase 73 (38-126) U/L Total Protein 6.9 (6.3-8.2) g/dL Albumin 4.0 (3.5-5.0) g/dL Urine Color Light Yellow Urine Appearance Clear (Clear) Urine pH 5.5 (5.0-8.0) Ur Specific [place] 1.023 (1.001-1.035) Urine Protein Negative (Negative) Urine Glucose (UA) Negative (Negative) Urine Ketones Negative (Negative) Urine Blood Negative (Negative) Urine Nitrite Negative (Negative) Urine Bilirubin Negative (Negative) Urine Urobilinogen <2.0 (<2.0) mg/dL Ur Leukocyte Esterase Negative (Negative) - EKG Data EKG Comments: 12-lead Electrocardiogram Interpretation Note EKG was reviewed and interpreted by myself. 12-lead ECG performed at 2110 is interpreted by me as revealing normal sinus rhythm at a rate of 67 beats per minute. [place] is normal. RI interval is 145 ms, QRS duration is 95 ms, QTc is 399 ms.. There were no ST or T wave abnormalities to suggest myocardial isc hemia or injury. R wave progression across the precordium was satisfactory. By my interpretation this EKG is non-diagnostic for acute ischemia. (Martin Subramanian) Disposition <Stariha,Olivia - Last Filed: 11/22/23 19:38> Is patient prescribed a controlled substance at d/c from ED?: No Time of Disposition: 22:50 <Martin Subramanian - Last Filed: 11/22/23 23:20> Clinical Impression: Chest wall pain, Rib pain on right side Disposition: HOME SELF-CARE Condition: Good Instructions (If sedation given, give patient instructions): How to Use an Incentive Spirometer (ED), Chest Wall Pain (ED) Referrals: Vicente Tellez Jr, [Primary Care Provider] - 1-2 days
[2023-11-22 20:00] VITALS: RESP 18; TEMP 97.9
[2023-11-22 21:26] LABS: Appearance,Urine Clear (Clear); Bilirubin,Urine Negative (Negative); Blood,Urine Negative (Negative); Color,Urine Light Yellow; Glucose,Urine (UA) Negative (Negative); Ketones,Urine Negative (Negative); Leukocyte Esterase,Urine Negative (Negative); Nitrite,Urine Negative (Negative); PH, Urine 5.5 (5.0-8.0); Protein,Urine Negative (Negative); Specific Gravity,Urine 1.023 (1.001-1.035); Urobilinogen,Urine <2.0 mg/dL (<2.0)
[2023-11-22 21:28] LABS: Basophils % (A) 0 %; Eosinophils # (A) 0.2 k/uL (0-0.7); Eosinophils % (A) 3 %; HCT 39.8 % (34.0-46.0); HGB 13.4 gm/dL (11.4-16.0); Lymphocytes # (A) 2.8 k/uL (1.0-4.8); Lymphocytes % (A) 31 %; MCH 29.7 pg (25.0-35.0); MCHC 33.6 g/dL (31.0-37.0); MCV 88.3 fL (80.0-100.0); Mean Platelet Volume 8.5; Monocytes # (A) 0.4 k/uL (0-1.0); Monocytes % (A) 4 %; Neutrophils # (A) 5.4 k/uL (1.3-7.7); Neutrophils % (A) 61 %; Platelet Count 236 k/uL (150-450); RDW 13.4 % (11.5-15.5); WBC 8.9 k/uL (3.8-10.6)
[2023-11-22 21:52] LABS: ALT 23 U/L (4-34); AST 21 U/L (14-36); African American GFR (CKD) >90 (>60 ml/min/1.73 sqM); Alkaline Phosphatase 73 U/L (38-126); Anion Gap 6 mmol/L; Blood Urea Nitrogen 16 mg/dL (7-17); Calcium 9.3 mg/dL (8.4-10.2); Carbon Dioxide 29 mmol/L (22-30); Chloride 104 mmol/L (98-107); Glucose 118 mg/dL (74-99); Non-African American GFR(CKD) >90 (>60 ml/min/1.73 sqM); Sodium 139 mmol/L (137-145); Total Bilirubin 0.4 mg/dL (0.2-1.3); Total Protein 6.9 g/dL (6.3-8.2)
--- NOTE | 2023-11-22 22:40 | XR ---
EXAMINATION TYPE: XR ribs RT w pa chest xray DATE OF EXAM: 11/22/2023 9:03 PM CLINICAL INDICATION:Female, 52 years old with history of pain; [facility] COMPARISON: TECHNIQUE: Frontal and oblique views of the right ribs with frontal chest radiograph. FINDINGS: The ribs have a normal appearance. No evidence of displaced or deforming fracture. The andreina gs are clear. No pneumothorax. The cardiac silhouette is upper normal in size. The other visualized osseous structures are intact. Degenerative changes of the spine. Clips in the right upper quadrant l ikely from cholecystectomy. IMPRESSION: No visualized rib fracture or acute chest process.
--- NOTE | 2023-11-22 22:42 | XR ---
EXAMINATION TYPE: XR thoracic spine 2V DATE OF EXAM: 11/22/2023 9:03 PM CLINICAL INDICATION:Female, 52 years old with history of pain; [facility] COMPARISON: TECHNIQUE: 2 views of the thoracic spine in Frontal and lateral projections. FINDINGS: Osseous mineralization appears appropriate. There is no evidence of compression fracture or significa nt AP malalignment. Mild to moderate multilevel degenerative disk disease with disc space narrowing a nd marginal osteophytes. The pedicles appear intact throughout. There is mild levocurvature of the lo wer thoracic spine. IMPRESSION: 1. Mild/moderate thoracic spine degenerative disc disease. 2. No radiographic evidence of an acute bony abnormality.
[2023-11-22 23:08] VITALS: BP 102/53; PULSE 79
== END 2023-11-22 22:55 | disposition home or self-care (01) ==
LOC: EC 19:22
DX: R07.81 Pleurodynia (principal); R07.89 Other chest pain; Z88.5 Allergy status to narcotic agent; Z87.442 Personal history of urinary calculi
CPT/HCPCS: 36415; 72070; 80053; 81003; 85025; 93005; 99285

== ENCOUNTER → 2024-12-24 | Outpatient (CLI) | payer BC ==
--- NOTE | 2024-12-29 11:46 | MM ---
Reason for Exam: Screening (asymptomatic). Last mammogram was performed 1 year(s) and 6 month(s) ago. Patient History: Menarche at age 14. First Full-Term at age 22. Right ovary removed at age 12. Postmenopausal. Other cancer, age 41. Risk Values: Rachel 5 year model risk: 0.9%. NCI Lifetime model risk: 6.9%. Prior Study Comparison: 09/28/2020 Bilateral Screening Mammogram, [facility]. 12/19/2021 Bilateral Screening Mammogram, [facility]. 07/06/2023 Bilateral MG 3D screening mammo w/cad, [facility]. Tissue Density: The breasts are heterogeneously dense, which may obscure small masses. Findings: Analyzed By CAD. There is no suspicious group of microcalcifications or new suspicious mass in either breast. Overall Assessment: Negative, BI-RAD 1 Management: Screening Mammogram of both breasts in 1 year. . Patient should continue monthly self-breast exams. A clinical breast exam by your physician is recommended on an annual basis. This exam should not preclude additional follow-up of suspicious palpable abnormalities. Note on Rachel scores and lifetime risk: 1. A Rachel score greater than 3% is considered moderate risk. If this is the case, consider specialist referral to assess eligibility for a risk reducing agent. 2. If overall lifetime risk for the development of breast cancer is 20% or higher, the patient may qualify for future screening with alternating mammogram and breast MRI. [facility], , 12/24/2024 3:14 PM. Electronically signed and approved by: Stas Simental M.D.
== END | disposition home or self-care (01) ==
LOC: RADMAMWWP 14:30
PROVIDERS: ATTEND Obstetrics & Gynecology
DX: Z12.31 Encounter for screening mammogram for malignant neoplasm of breast (principal); R92.333 Mammographic heterogeneous density, bilateral breasts; Z78.0 Asymptomatic menopausal state
CPT/HCPCS: 77063; 77067